=== PATIENT | male | born 1990 | race Caucasian/White ===

== ENCOUNTER → 2018-07-17 | Emergency (ER) | payer OTHER ==
[~2018-07-17] VITALS: Ht 182.9 cm; Wt 87.5 kg
[~2018-07-17] MED LIST: LAMOTRIGINE100 MG PO; ZONISAMIDE100 MG PO
== END ==
LOC: ED 09:58
DX: S01.21XA Laceration without foreign body of nose, initial encounter (principal); W26.8XXA Contact with other sharp object(s), not elsewhere classified, initial encounter
CPT/HCPCS: 12011; 90471; 90715; 99282-25

== ENCOUNTER 2018-07-23 14:37 | Emergency (ER) | payer OTHER ==
[~2018-07-23] VITALS: Ht 182.9 cm; Wt 87.5 kg
--- OUTSIDE RECORDS SUMMARY | 2018-07-23 14:40 | XMS ---
PreManage Notification: DEYA GRANDA [employer] Manager Events No recent Security Events currently on file CRITERIA MET - [facility] - 2 Visits in 30 Days CARE PROVIDERS There are no care providers on record at this time. Abdullahi has no Care Guidelines for this patient. Talha VISIT COUNT (12 MO.) [address] [facility] TOTAL 2 NOTE: Visits indicate total known visits. ED/C VISIT TRACKING (12 MO.) 07/23/2018 14:[address] [facility] [place] TYPE: Emergency COMPLAINT: - STITCH REMOVAL 07/17/2018 09:[address] [facility] [place] TYPE: Emergency COMPLAINT: - FACIAL LAC DIAGNOSES: - Contact with other sharp object(s), not elsewhere classified, initial encounter - Laceration without foreign body of nose, initial encounter INPATIENT VISIT TRACKING (12 MO.) No inpatient visits to display in this time frame [email or web address]
== END 2018-07-23 15:40 | disposition home or self-care (01) ==
LOC: ED 14:37
DX: S01.21XD Laceration without foreign body of nose, subsequent encounter (principal)